=== PATIENT | female | born 1985 | race Caucasian/White ===

== ENCOUNTER 2019-01-28 10:08 | Inpatient (IN) | payer BC ==
[~2019-01-28] VITALS: Ht 160 cm; Wt 61.3 kg
[2019-01-28] MEDS ORDERED: OXYTOCIN 30U/ 0.9% NaCL 500ML 500 ML IV ONE (10:14)
[2019-01-28] MEDS: LACTATED RINGERS 1,000 ML IV SCH ×2 (10:14→18:14)
[2019-01-28] MEDS ORDERED: MISOPROSTOL 200 MCG TABLET ONE ×2 (10:29→10:37)
[2019-01-28] MEDS ORDERED: LIDOCAINE 1%, 20ML ONE ×2 (10:29→10:37)
[2019-01-28] MEDS ORDERED: OXYTOCIN 30U/ 0.9% NaCL 500ML 500 ML ONE ×2 (10:29→13:18)
[2019-01-28] MEDS ORDERED: TERBUTALINE 1 MG/ML, 1ML SQ PRN (10:30)
[2019-01-28] MEDS ORDERED: SODIUM CHLORIDE FLUSH 10ML SYR IVF PRN (10:30)
[2019-01-28] MEDS ORDERED: TERBUTALINE 1 MG/ML, 1ML IVPush PRN (10:30)
[2019-01-28] MEDS ORDERED: NEWBORN KIT ONE (10:37)
[2019-01-28 10:48] LABS: BASOPHILS % (AUTO) 0 % (0-1); EOSINOPHILS % (AUTO) 0 % (1-7); LYMPHOCYTES # (AUTO) 0.55 x10^3/uL (1-3.4); LYMPHOCYTES % (AUTO) 4 % (22-44); MD NO; MEAN CORPUSCULAR HEMOGLOBIN 31.7 pg (27.0-34.8); MEAN CORPUSCULAR HGB CONC 34.1 g/dL (32.4-35.8); MEAN PLATELET VOLUME 8.9 fL (7.4-10.4); MONOCYTES # (AUTO) 0.41 x10^3/uL (0.2-0.8); MONOCYTES % (AUTO) 3 % (2-9); NEUTROPHILS # (AUTO) 13.28 x10^3/uL (1.8-6.8); NEUTROPHILS % (AUTO) 93 % (42-75); PLATELET COUNT 198 x10^3/uL (130-400); RED BLOOD COUNT 3.95 x10^6/uL (3.82-5.3); RED CELL DISTRIBUTION WIDTH 13.2 % (9.6-15.2)
[2019-01-28] MEDS ORDERED: RHOGAM FROM BLOOD BANK 1 NOTE EA IM/IV ONE (13:00)
[2019-01-28] MEDS ORDERED: IBUPROFEN 600 MG TABLET PO PRN (13:00)
[2019-01-28] MEDS ORDERED: MISOPROSTOL 200 MCG TABLET PR PRN (13:00)
[2019-01-28] MEDS ORDERED: MAGNESIUM HYDROXIDE 8%, 30ML UDC PO PRN (13:00)
[2019-01-28] MEDS ORDERED: MEASLES,MUMPS&RUBELLA VACC/PF 0.5 ML SQ-VACC PRN (13:00)
[2019-01-28] MEDS ORDERED: ACETAMINOPHEN 325 MG TABLET PO PRN ×2 (13:00)
[2019-01-28] MEDS ORDERED: HYDROcodone/APAP 5/325 TABLET PO PRN ×2 (13:00)
[2019-01-28] MEDS: OXYTOCIN 30U/ 0.9% NaCL 500ML 500 ML IV SCH ×2 (13:27→22:48)
[2019-01-28 16:27] VITALS: BP 91/53
[2019-01-28 19:06] VITALS: BP 95/60
[2019-01-28 20:00] LABS: BASOPHILS # (AUTO) 0.01 x10^3/uL (0-0.1); BASOPHILS % (AUTO) 0 % (0-1); EOSINOPHILS # (AUTO) 0.16 x10^3/uL (0-0.4); EOSINOPHILS % (AUTO) 1 % (1-7); LYMPHOCYTES # (AUTO) 0.95 x10^3/uL (1-3.4); LYMPHOCYTES % (AUTO) 6 % (22-44); MD NO; MEAN CORPUSCULAR HEMOGLOBIN 32.4 pg (27.0-34.8); MEAN CORPUSCULAR VOLUME 95.1 fL (80-100); MEAN PLATELET VOLUME 9.1 fL (7.4-10.4); MONOCYTES # (AUTO) 1.17 x10^3/uL (0.2-0.8); MONOCYTES % (AUTO) 8 % (2-9); NEUTROPHILS # (AUTO) 12.61 x10^3/uL (1.8-6.8); NEUTROPHILS % (AUTO) 85 % (42-75); PLATELET COUNT 210 x10^3/uL (130-400); RED BLOOD COUNT 3.62 x10^6/uL (3.82-5.3); RED CELL DISTRIBUTION WIDTH 13.3 % (9.6-15.2)
[2019-01-28] MEDS: DOCUSATE 100 MG CAPSULE PO PRN (22:02)
[2019-01-29 00:50] VITALS: BP 93/60
[2019-01-29] MEDS: LACTATED RINGERS 1,000 ML IV SCH ×2 (02:14→10:14)
[2019-01-29 04:25] VITALS: BP 90/56
[2019-01-29 07:10] VITALS: BP 101/67
[2019-01-29] MEDS: OXYTOCIN 30U/ 0.9% NaCL 500ML 500 ML IV SCH (07:31)
[2019-01-29] MEDS: DOCUSATE 100 MG CAPSULE PO PRN (07:42)
[2019-01-29] MEDS ORDERED: PRENATAL VIT/IRON/FA 1 EACH TABLET PO SCH (09:00)
[2019-01-29] MEDS ORDERED: HYDR-3240 PO (11:28)
[2019-01-29] MEDS ORDERED: IBUP-1222 PO (11:28)
== END 2019-01-29 15:05 | disposition home or self-care (01) | DRG 807 ==
LOC: LDOP 10:08 → LDIP 10:17 → 2NW 14:30
PROVIDERS: ADMIT Obstetrics & Gynecology; ATTEND Obstetrics & Gynecology
PROC: 10E0XZZ Delivery of Products of Conception, External Approach (ICD-10-PCS; principal; 2019-01-28)
PROC: 0W8NXZZ Division of Female Perineum, External Approach (ICD-10-PCS; 2019-01-28)
DX: O80 Encounter for full-term uncomplicated delivery (principal); Z37.0 Single live birth; Z3A.40 40 weeks gestation of pregnancy
CPT/HCPCS: 36415; 85025; 86850; 86900; G0378; J2590